=== PATIENT | male | born 1945 | race American Indian/Alaskan Native ===

== ENCOUNTER 2020-06-22 04:16 | Observation (INO) | payer MEDICARE, OTHER ==
[2020-06-22] MEDS ORDERED: ALBUTEROL 2.5 MG/3 ML NEBU IH ONE (05:06)
[2020-06-22] MEDS ORDERED: IPRATROPIUM 0.02% NEBU 2.5 ML IH ONE (05:06)
[2020-06-22 05:49] LABS: Basophils # (Auto) 0.1 K/mm3 (0.0-0.1); Basophils % (Auto) 0.6 % (0.0-1.8); Eosinophils # (Auto) 0.1 K/mm3 (0.0-0.4); Eosinophils % (Auto) 0.6 % (0.0-4.3); Hematocrit 37.3 % (35.5-45.6); Hemoglobin 12.3 gm/dl (11.8-15.2); Lymphocytes # (Auto) 0.9 K/mm3 (1.2-5.4); Lymphocytes % (Auto) 8.8 % (13.4-35.0); Mean Corpuscular HGB Conc 33 % (32-34); Mean Corpuscular Volume 90 fl (84-94); Monocytes # (Auto) 0.5 K/mm3 (0.0-0.8); Monocytes % (Auto) 5.4 % (0.0-7.3); Platelet Count 106 K/mm3 (140-440); Red Blood Count 4.15 M/mm3 (3.65-5.03); Red Cell Distribution Width 15.8 % (13.2-15.2)
[2020-06-22 05:58] LABS: INR 1.24 (0.87-1.13)
--- NOTE | 2020-06-22 06:02 | XRay Report ---
CHEST 1 VIEW INDICATION / CLINICAL INFORMATION: Shortness of breath. COMPARISON: None available. FINDINGS: SUPPORT DEVICES: None. HEART / MEDIASTINUM: No significant abnormality. LUNGS / PLEURA: No significant pulmonary or pleural abnormality. No pneumothorax. ADDITIONAL FINDINGS: No significant additional findings. IMPRESSION: 1. No acute findings. Signer Name: Robyn Oseguera MD Signed: 06/22/2020 5:58 AM Workstation Name: [id number]
--- NOTE | 2020-06-22 06:02 | Emergency Department Report ---
ED General Adult HPI - General Chief complaint: Dyspnea/Respdistress Stated complaint: GIO Time Seen by Provider: 06/22/20 05:53 Source: patient Mode of arrival: Ambulatory Limitations: No Limitations - History of Present Illness Initial comments: The patient presents to the emergency department the chief complaint of shortness of breath that became worse over the last 2 days. Patient denies a history of congestive heart failure or COPD. Patient denies having a fever but does endorse having a cough in the last couple of days. Patient states that he has an appointment for heart valve replacement on Monday with Dr. Tiago Ramos. Patient denies any chest pain, he art palpitations, headache, abdominal pain. -: Sudden Severity scale (0 -10): 0 Consistency: constant Improves with: none Worsens with: none Associated Symptoms: denies other symptoms Treatments Prior to Arrival: none - Related Data Allergies Allergy/AdvReac Type Severity Reaction Status Date / Time No Known Allergies Allergy Unverified 06/22/20 04:33 ED Review of Systems ROS: Stated complaint: GIO Other details as noted in HPI Comment: All other systems reviewed and negative Constitutional: denies: chills, fever Eyes: denies: eye pain, eye discharge, vision change ENT: denies: ear pain, throat pain Respiratory: shortness of breath, SOB with exertion. denies: cough, wheezing Cardiovascular: denies: chest pain, palpitations Endocrine: no symptoms reported Gastrointestinal: denies: abdominal pain, nausea, diarrhea Genitourinary: denies: urgency, dysuria Musculoskeletal: denies: back pain, joint swelling, arthralgia Skin: denies: rash, lesions Neurological: denies: headache, weakness, paresthesias Psychiatric: denies: anxiety, depression Hematological/Lymphatic: denies: easy bleeding, easy bruising ED Past Medical Hx - Past Medical History Previous Medical History?: Yes Hx Hypertension: Yes Hx Diabetes: Yes Hx Renal Disease: ("kidney problems"; denies dialysis) - Social History Smoking Status: Never Smoker Substance Use Type: None ED Physical Exam - General Limitations: No Limitations General appearance: alert, in no apparent distress, other (Dyspneic with speech) - Head Head exam: Present: atraumatic, normocephalic - Eye Eye exam: Present: normal appearance, PERRL - ENT ENT exam: Present: mucous membranes moist - Neck Neck exam: Present: normal inspection - Respiratory Respiratory exam: Present: rales. Absent: respiratory distress - Cardiovascular Cardiovascular Exam: Present: regular rate, normal rhythm, systolic murmur. Absent: diastolic murmur, rubs, gallop - GI/Abdominal GI/Abdominal exam: Present: soft, normal bowel sounds. Absent: distended, tenderness - Rectal Rectal exam: Present: deferred - Extremities Exam Extremities exam: Present: normal inspection - Back Exam Back exam: Present: normal inspection - Neurological Exam Neurological exam: Present: alert, oriented X3, CN II-XII intact. Absent: motor sensory deficit - Psychiatric Psychiatric exam: Present: normal affect, normal mood - Skin Skin exam: Present: warm, dry, intact, normal color. Absent: rash ED Course Vital Signs 06/22/20 06/22/20 06/22/20 04:18 04:30 04:45 Pulse Rate 82 Pulse Rate [ Bilateral Throughout] Respiratory 18 22 Rate Respiratory Rate [Bilateral Throughout] Blood Pressure O2 Sat by Pulse 97 95 98 Oximetry 06/22/20 06/22/20 06/22/20 04:46 05:00 05:19 Pulse Rate 84 81 Pulse Rate [ 85 Bilateral Throughout] Respiratory 19 24 Rate Respiratory 20 Rate [Bilateral Throughout] Blood Pressure 149/80 147/81 O2 Sat by Pulse 95 99 Oximetry 06/22/20 06/22/20 06/22/20 05:30 06:00 06:30 Pulse Rate 76 74 71 Pulse Rate [ Bilateral Throughout] Respiratory 17 20 24 Rate Respiratory Rate [Bilateral Throughout] Blood Pressure 150/77 153/73 149/72 O2 Sat by Pulse 96 94 96 Oximetry 06/22/20 06/22/20 07:00 07:30 Pulse Rate 68 68 Pulse Rate [ Bilateral Throughout] Respiratory 23 22 Rate Respiratory Rate [Bilateral Throughout] Blood Pressure 143/74 151/71 O2 Sat by Pulse 96 95 Oximetry ED Medical Decision Making - Lab Data Result diagrams: 06/22/20 05:12 06/22/20 05:12 Lab Results 06/22/20 06/22/20 06/22/20 Range/Units 05:12 05:12 05:12 WBC 9.8 (4.5-11.0) K/mm3 RBC 4.15 (3.65-5.03) M/mm3 Hgb 12.3 (11.8-15.2) gm/dl Hct 37.3 (35.5-45.6) % MCV 90 (84-94) fl MCH 30 (28-32) pg MCHC 33 (32-34) % RDW 15.8 H (13.2-15.2) % Plt Count 106 L (140-440) K/mm3 Lymph % (Auto) 8.8 L (13.4-35.0) % [place] % (Auto) 5.4 (0.0-7.3) % Eos % (Auto) 0.6 (0.0-4.3) % Baso % (Auto) 0.6 (0.0-1.8) % Lymph # (Auto) 0.9 L (1.2-5.4) K/mm3 [place] # (Auto) 0.5 (0.0-0.8) K/mm3 Eos # (Auto) 0.1 (0.0-0.4) K/mm3 Baso # (Auto) 0.1 (0.0-0.1) K/mm3 Seg Neutrophils % 84.6 H (40.0-70.0) % Seg Neutrophils # 8.3 H (1.8-7.7) K/mm3 PT 15.6 H (12.2-14.9) Sec. INR 1.24 H (0.87-1.13) Sodium (137-145) mmol/L Potassium (3.6-5.0) mmol/L Chloride (98-107) mmol/L Carbon Dioxide (22-30) mmol/L Anion Gap mmol/L BUN (9-20) mg/dL Creatinine (0.8-1.3) mg/dL Estimated GFR ml/min BUN/Creatinine Ratio % Glucose (75-100) mg/dL Calcium (8.4-10.2) mg/dL Total Bilirubin (0.1-1.2) mg/dL AST (5-40) units/L ALT (7-56) units/L Alkaline Phosphatase (35-129) units/L NT-Pro-B Natriuret Pep 6357 H (0-900) pg/mL Total Protein (6.3-8.2) g/dL Albumin (3.9-5) g/dL Albumin/Globulin Ratio % 05// Range/Units 05:12 WBC (4.5-11.0) K/mm3 RBC (3.65-5.03) M/mm3 Hgb (11.8-15.2) gm/dl Hct (35.5-45.6) % MCV (84-94) fl MCH (28-32) pg MCHC (32-34) % RDW (13.2-15.2) % Plt Count (140-440) K/mm3 Lymph % (Auto) (13.4-35.0) % [place] % (Auto) (0.0-7.3) % Eos % (Auto) (0.0-4.3) % Baso % (Auto) (0.0-1.8) % Lymph # (Auto) (1.2-5.4) K/mm3 [place] # (Auto) (0.0-0.8) K/mm3 Eos # (Auto) (0.0-0.4) K/mm3 Baso # (Auto) (0.0-0.1) K/mm3 Seg Neutrophils % (40.0-70.0) % Seg Neutrophils # (1.8-7.7) K/mm3 PT (12.2-14.9) Sec. INR (0.87-1.13) Sodium 142 (137-145) mmol/L Potassium 3.8 (3.6-5.0) mmol/L Chloride 107.9 H (98-107) mmol/L Carbon Dioxide 24 (22-30) mmol/L Anion Gap 14 mmol/L BUN 17 (9-20) mg/dL Creatinine 1.3 (0.8-1.3) mg/dL Estimated GFR 54 ml/min BUN/Creatinine Ratio 13 % Glucose 202 H (75-100) mg/dL Calcium 8.7 (8.4-10.2) mg/dL Total Bilirubin 0.70 (0.1-1.2) mg/dL AST 15 (5-40) units/L ALT 10 (7-56) units/L Alkaline Phosphatase 69 (35-129) units/L NT-Pro-B Natriuret Pep (0-900) pg/mL Total Protein 6.2 L (6.3-8.2) g/dL Albumin 3.6 L (3.9-5) g/dL Albumin/Globulin Ratio 1.4 % - EKG Data -: EKG Interpreted by Hi EKG shows normal: sinus rhythm Rate: normal - EKG Data Interpretation: other (Inverted T waves in V5 and V6) - Radiology Data Radiology results: report reviewed - Medical Decision Making Patient was given IV Lasix with some relief of symptoms Discussed results and plan of care with patient Critical Care Time: Yes Critical care time in (mins) excluding proc time.: 35 Critical care attestation.: If time is entered above; I have spent that time in minutes in the direct care of this critically ill patient, excluding procedure time. ED Disposition Clinical Impression: Dyspnea, Pulmonary edema Disposition: DC-09 OP ADMIT IP TO THIS HOSP Is pt being admited?: Yes Does the pt Need Aspirin: No Condition: Fair Instructions: Pulmonary Edema (ED) Referrals: ELMER VELA MD [Primary Care Provider] - 3-5 Days
[2020-06-22 06:18] LABS: Albumin 3.6 g/dL (3.9-5); Calcium 8.7 mg/dL (8.4-10.2)
[2020-06-22] MEDS ORDERED: FUROSEMIDE 20 MG/2 ML INJ IV ONE (08:27)
--- NOTE | 2020-06-22 08:32 | Cat Scan Report ---
CTA CHEST WITH IV CONTRAST INDICATION: Acute onset chest pain with dyspnea TECHNIQUE: Axial CT images were obtained through the chest after injection of 100 mL IV contrast. 3 plane MIP re constructions were produced. All CT scans at this location are performed using CT dose reduction for ALARA by means of automated exposure control. COMPARISON: None available. FINDINGS: PULMONARY ARTERIES: No pulmonary emboli. AORTA AND ARTERIES: Prominent coronary artery calcification. Prominent atherosclerotic calcification of the descending thoracic aorta.. MEDIASTINUM: No mass, lymphadenopathy or other significant abnormality. The heart is normal in size w ithout a pericardial effusion. The trachea and main bronchi are patent and normal in caliber. LUNGS: Scattered increased groundglass/interstitial opacity present within both lungs specifically wi thin both upper lobes, right greater than left. There is some ill-defined groundglass density within both lower lobes. Small right pleural effusion and tiny left pleural effusion. ADDITIONAL FINDINGS: None. UPPER ABDOMEN: No acute findings. BONES: No significant osseous abnormality. IMPRESSION: 1. No CT evidence for pulmonary embolism. 2. Small bilateral pleural effusions with bilateral increased groundglass densities in a relative per ihilar distribution suspicious for interstitial edema. Signer Name: Keith Oliva MD Signed: 06/22/2020 8:28 AM Workstation Name: [id number]
[2020-06-22] MEDS ORDERED: CEFEPIME/NS 2 GM/100 ML 2 GM/100 ML BAG IV ONE (09:04)
[2020-06-22] MEDS ORDERED: ONDANSETRON 4 MG/2 ML INJ IV PRN (10:21)
[2020-06-22] MEDS ORDERED: DEXTROSE 50% IN WATER (25GM) 50 ML SYRINGE IV PRN (10:21)
[2020-06-22] MEDS ORDERED: ACETAMINOPHEN 325 MG TAB PO PRN (10:21)
--- NOTE | 2020-06-22 10:21 | History and Physical Report ---
History of Present Illness Date of examination: 06/22/20 Date of admission: 06/22/20 09:18 Chief complaint: SOB History of present illness: 75-year-old male with past medical history of hyperlipidemia, BPH, diabetes mellitus type 2, hypertension and chronic kidney disease who presents to the emergency department with complaints of dyspnea that began yesterday evening. Patient stated that his symptoms persisted until arrival to the emergency room. Patient denies any history of COPD or heart failure but reports a "bad heart valve". Patient reports that he is scheduled for heart valve replacement on Monday with Dr. Tiago Ramos. Patient denies any chest pain, heart palpitations, abdominal pain, headache or visual disturbances. No cough or cold-like symptoms. No fever chills. Patient reports lower extremity swelling over the course of the past year but none recently. Patient denies PND or orthopnea. Past History Past Medical History: diabetes, hypertension, hyperlipidemia, other (CKD, BPH) Past Surgical History: No surgical history Social history: no significant social history Family history: no significant family history Medications and Allergies Allergies Allergy/AdvReac Type Severity Reaction Status Date / Time No Known Allergies Allergy Unverified 06/22/20 04:33 Review of Systems All systems: negative Exam - Constitutional Vitals: Temp Pulse Resp BP Pulse Ox 68 22 151/71 95 06/22/20 07:30 06/22/20 07:30 06/22/20 07:30 06/22/20 07:30 General appearance: Present: no acute distress, well-nourished - EENT Eyes: Present: PERRL ENT: hearing intact, clear oral mucosa - Neck Neck: Present: supple, normal ROM - Respiratory Respiratory effort: normal Respiratory: bilateral: CTA - Cardiovascular Heart Sounds: Present: S1 & S2. Absent: rub, click - Extremities Extremities: pulses symmetrical, No edema Peripheral Pulses: within normal limits - Abdominal General gastrointestinal: Present: soft, non-tender, non-distended, normal bowel sounds Male genitourinary: Present: normal - Integumentary Integumentary: Present: clear, warm, dry - Musculoskeletal Musculoskeletal: gait normal, strength equal bilaterally - Psychiatric Psychiatric: appropriate mood/affect, intact judgment & insight - Neurologic Neurologic: CNII-XII intact, moves all extremities Results - Labs CBC & Chem 7: 06/22/20 05:12 06/22/20 05:12 Labs: Laboratory Last Values WBC 9.8 K/mm3 (4.5-11.0) 06/22/20 05:12 RBC 4.15 M/mm3 (3.65-5.03) 06/22/20 05:12 Hgb 12.3 gm/dl (11.8-15.2) 06/22/20 05:12 Hct 37.3 % (35.5-45.6) 06/22/20 05:12 MCV 90 fl (84-94) 06/22/20 05:12 MCH 30 pg (28-32) 06/22/20 05:12 MCHC 33 % (32-34) 06/22/20 05:12 RDW 15.8 % (13.2-15.2) H 06/22/20 05:12 Plt Count 106 K/mm3 (140-440) L 06/22/20 05:12 Lymph % (Auto) 8.8 % (13.4-35.0) L 06/22/20 05:12 [place] % (Auto) 5.4 % (0.0-7.3) 06/22/20 05:12 Eos % (Auto) 0.6 % (0.0-4.3) 06/22/20 05:12 Baso % (Auto) 0.6 % (0.0-1.8) 06/22/20 05:12 Lymph # (Auto) 0.9 K/mm3 (1.2-5.4) L 06/22/20 05:12 [place] # (Auto) 0.5 K/mm3 (0.0-0.8) 06/22/20 05:12 Eos # (Auto) 0.1 K/mm3 (0.0-0.4) 06/22/20 05:12 Baso # (Auto) 0.1 K/mm3 (0.0-0.1) 06/22/20 05:12 Seg Neutrophils % 84.6 % (40.0-70.0) H 06/22/20 05:12 Seg Neutrophils # 8.3 K/mm3 (1.8-7.7) H 06/22/20 05:12 PT 15.6 Sec. (12.2-14.9) H 06/22/20 05:12 INR 1.24 (0.87-1.13) H 06/22/20 05:12 Sodium 142 mmol/L (137-145) 06/22/20 05:12 Potassium 3.8 mmol/L (3.6-5.0) 06/22/20 05:12 Chloride 107.9 mmol/L (98-107) H 06/22/20 05:12 Carbon Dioxide 24 mmol/L (22-30) 06/22/20 05:12 Anion Gap 14 mmol/L 06/22/20 05:12 BUN 17 mg/dL (9-20) 06/22/20 05:12 Creatinine 1.3 mg/dL (0.8-1.3) 06/22/20 05:12 Estimated GFR 54 ml/min 06/22/20 05:12 BUN/Creatinine Ratio 13 % 06/22/20 05:12 Glucose 202 mg/dL (75-100) H 06/22/20 05:12 Calcium 8.7 mg/dL (8.4-10.2) 06/22/20 05:12 Total Bilirubin 0.70 mg/dL (0.1-1.2) 06/22/20 05:12 AST 15 units/L (5-40) 06/22/20 05:12 ALT 10 units/L (7-56) 06/22/20 05:12 Alkaline Phosphatase 69 units/L (35-129) 06/22/20 05:12 NT-Pro-B Natriuret Pep 6357 pg/mL (0-900) H 06/22/20 05:12 Total Protein 6.2 g/dL (6.3-8.2) L 06/22/20 05:12 Albumin 3.6 g/dL (3.9-5) L 06/22/20 05:12 Albumin/Globulin Ratio 1.4 % 06/22/20 05:12 Microbiology: Microbiology 06/22/20 05:54 Peripheral/Venous Blood Culture - Preliminary Culture in Progress 06/22/20 05:12 Peripheral/Venous Blood Culture - Preliminary Culture in Progress Assessment and Plan Assessment and plan: Acute hypoxic respiratory failure. CTA of the chest revealed small bilateral pleural effusions with bilateral increased groundglass densities in a relative perihilar distribution suspicious for interstitial edema. Check COVID-19 PCR. Acute heart failure. Patient has a CTA that is suggestive of interstitial edema/pulmonary edema/CHF. BNP is also elevated at 6357. Check echocardiogram. Consult cardiology. Patient will be placed on heart failure pathway. Diabetes mellitus type 2. Accu-Cheks and sliding scale insulin. Resume Metformin. BPH. Resume medications. Hyperlipidemia. Resume antilipids. CKD. Creatinine appears to be stable at 1.3
[2020-06-22] MEDS: INSULIN REGULAR, HUMAN 100 UNITS/1 ML SUB-Q SCH ×3 (13:33→22:46)
[2020-06-23] MEDS ORDERED: guaiFENesin 100 MG/5 ML ORAL LIQD PO PRN (00:29)
[2020-06-23] MEDS: INSULIN REGULAR, HUMAN 100 UNITS/1 ML SUB-Q SCH ×4 (07:30→21:53)
[2020-06-23 07:42] LABS: Basophils % (Auto) 0.5 % (0.0-1.8); Eosinophils # (Auto) 0.1 K/mm3 (0.0-0.4); Eosinophils % (Auto) 1.2 % (0.0-4.3); Hematocrit 37.2 % (35.5-45.6); Hemoglobin 11.9 gm/dl (11.8-15.2); Lymphocytes % (Auto) 13.9 % (13.4-35.0); Mean Corpuscular HGB Conc 32 % (32-34); Mean Corpuscular Volume 89 fl (84-94); Monocytes # (Auto) 0.5 K/mm3 (0.0-0.8); Monocytes % (Auto) 7.4 % (0.0-7.3); Platelet Count 112 K/mm3 (140-440); Red Blood Count 4.18 M/mm3 (3.65-5.03); Red Cell Distribution Width 15.6 % (13.2-15.2)
--- NOTE | 2020-06-23 07:53 | Progress Note ---
Assessment and Plan Assessment and plan: Acute hypoxic respiratory failure. CTA of the chest revealed small bilateral pleural effusions with bilateral increased groundglass densities in a relative perihilar distribution suspicious for interstitial edema. Check COVID-19 PCR. Acute heart failure. Patient has a CTA that is suggestive of interstitial edema/pulmonary edema/CHF. BNP is also elevated at 6357. Check echocardiogram. Consult cardiology. Patient will be placed on heart failure pathway. Diabetes mellitus type 2. Accu-Cheks and sliding scale insulin. Resume Metformin. BPH. Resume medications. Hyperlipidemia. Resume antilipids. CKD. 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 -Patient can be discharged once we have his Covid test result History Interval history: Patient was seen and evaluated this morning Patient shortness of breath is getting better. Patient was off oxygen, no shortness of breath or chest pain Hospitalist Physical - Physical exam Narrative exam: Not in cardiopulmonary distress. The patient appeared well nourished and normally developed. Vital signs as documented. Head exam is unremarkable. No scleral icterus . Neck is without jugular venous distension, thyromegaly, or carotid bruits. Lungs are clear to auscultation. Cardiac exam reveals regular rate and Rhythm. Abdominal exam reveals normal bowel sounds, nontender, no organomegaly. Extremities are nonedematous and both femoral and pedal pulses are normal. HEALTH AND FITNESS PROFESSOR: Alert and oriented 3. No focal weakness. - Constitutional Vitals: Temp Pulse Resp BP Pulse Ox 99.2 F 79 20 166/75 100 06/23/20 04:27 06/23/20 04:27 06/23/20 04:27 06/23/20 04:27 06/23/20 04:27 General appearance: Present: no acute distress, well-nourished Results - Labs CBC & Chem 7: 06/23/20 06:34 06/23/20 06:34 Labs: Laboratory Last Values WBC 7.3 K/mm3 (4.5-11.0) 06/23/20 06:34 RBC 4.18 M/mm3 (3.65-5.03) 06/23/20 06:34 Hgb 11.9 gm/dl (11.8-15.2) 06/23/20 06:34 Hct 37.2 % (35.5-45.6) 06/23/20 06:34 MCV 89 fl (84-94) 06/23/20 06:34 MCH 29 pg (28-32) 06/23/20 06:34 MCHC 32 % (32-34) 06/23/20 06:34 RDW 15.6 % (13.2-15.2) H 06/23/20 06:34 Plt Count 112 K/mm3 (140-440) L 06/23/20 06:34 Lymph % (Auto) 13.9 % (13.4-35.0) 06/23/20 06:34 [place] % (Auto) 7.4 % (0.0-7.3) H 06/23/20 06:34 Eos % (Auto) 1.2 % (0.0-4.3) 06/23/20 06:34 Baso % (Auto) 0.5 % (0.0-1.8) 06/23/20 06:34 Lymph # (Auto) 1.0 K/mm3 (1.2-5.4) L 06/23/20 06:34 [place] # (Auto) 0.5 K/mm3 (0.0-0.8) 06/23/20 06:34 Eos # (Auto) 0.1 K/mm3 (0.0-0.4) 06/23/20 06:34 Baso # (Auto) 0.0 K/mm3 (0.0-0.1) 06/23/20 06:34 Seg Neutrophils % 77.0 % (40.0-70.0) H 06/23/20 06:34 Seg Neutrophils # 5.7 K/mm3 (1.8-7.7) 06/23/20 06:34 PT 15.6 Sec. (12.2-14.9) H 06/22/20 05:12 INR 1.24 (0.87-1.13) H 06/22/20 05:12 Sodium 142 mmol/L (137-145) 06/22/20 05:12 Potassium 3.8 mmol/L (3.6-5.0) 06/22/20 05:12 Chloride 107.9 mmol/L (98-107) H 06/22/20 05:12 Carbon Dioxide 24 mmol/L (22-30) 06/22/20 05:12 Anion Gap 14 mmol/L 06/22/20 05:12 BUN 17 mg/dL (9-20) 06/22/20 05:12 Creatinine 1.3 mg/dL (0.8-1.3) 06/22/20 05:12 Estimated GFR 54 ml/min 06/22/20 05:12 BUN/Creatinine Ratio 13 % 06/22/20 05:12 Glucose 202 mg/dL (75-100) H 06/22/20 05:12 POC Glucose 156 mg/dL (70-105) H 06/22/20 21:26 Lactic Acid 1.30 mmol/L (0.7-2.0) 06/22/20 09:19 Calcium 8.7 mg/dL (8.4-10.2) 06/22/20 05:12 Total Bilirubin 0.70 mg/dL (0.1-1.2) 06/22/20 05:12 AST 15 units/L (5-40) 06/22/20 05:12 ALT 10 units/L (7-56) 06/22/20 05:12 Alkaline Phosphatase 69 units/L (35-129) 06/22/20 05:12 NT-Pro-B Natriuret Pep 6357 pg/mL (0-900) H 06/22/20 05:12 Total Protein 6.2 g/dL (6.3-8.2) L 06/22/20 05:12 Albumin 3.6 g/dL (3.9-5) L 06/22/20 05:12 Albumin/Globulin Ratio 1.4 % 06/22/20 05:12 Microbiology: Microbiology 06/22/20 05:54 Peripheral/Venous Blood Culture - Preliminary Culture in Progress 06/22/20 05:12 Peripheral/Venous Blood Culture - Preliminary Culture in Progress Staples/IV: Voiding Method Toilet Active Medications - Current Medications Current Medications: Generic Name Dose Route Start Last Admin Trade Name Freq PRN Reason Stop Dose Admin Acetaminophen 650 mg 06/22/20 10:21 Acetaminophen 325 Mg Tab PO Q4H PRN Pain MILD(1-3)/Fever >100.5/SHAFER Dextrose 50 ml 06/22/20 10:21 Dextrose 50% In Water (25gm) 50 Ml Syringe IV Q30MIN PRN Hypoglycemia Protocol Furosemide 40 mg 06/23/20 10:00 Furosemide 40 Mg/4 Ml Inj IV QDAY [facility] Guaifenesin 200 mg 06/23/20 00:29 06/23/20 06:17 Guaifenesin 100 Mg/5 Ml Oral Liqd PO 200 mg Q6H PRN Administration Cough Insulin Human Regular 0 units 06/22/20 11:30 06/22/20 22:46 Insulin Regular, Human 100 Units/1 Ml SUB-Q Not Given ACHS [facility] Protocol Ondansetron HCl 4 mg 06/22/20 10:21 Ondansetron 4 Mg/2 Ml Inj IV Q8H PRN Nausea And Vomiting Potassium Chloride 10 meq 06/23/20 10:00 Potassium Chloride Er 10 Meq Tab PO QDAY PABLO Sodium Chloride 10 ml 06/22/20 22:00 06/22/20 22:46 Sodium Chloride 0.9% 10 Ml Flush Syringe IV 10 ml BID PABLO Administration Sodium Chloride 10 ml 06/22/20 10:21 Sodium Chloride 0.9% 10 Ml Flush Syringe IV PRN PRN LINE FLUSH
[2020-06-23 08:14] LABS: BUN/Creatinine Ratio 18; Blood Urea Nitrogen 21 mg/dL (9-20); Calcium 8.7 mg/dL (8.4-10.2); Hemolysis Index 1
[2020-06-23] MEDS: FUROSEMIDE 40 MG/4 ML INJ IV SCH (09:27)
[2020-06-23] MEDS: POTASSIUM CHLORIDE ER 10 MEQ TAB PO SCH (09:27)
[2020-06-23] MEDS: hydroCHLOROthiazide 12.5 MG CAP PO SCH (10:00)
[2020-06-23] MEDS: carvediloL 12.5 MG TAB PO SCH ×2 (10:00→21:55)
[2020-06-23] MEDS: LOSARTAN 50 MG TAB PO SCH (10:00)
[2020-06-23] MEDS ORDERED: NON-FORMULARY EACH (Losartan [Cozaar] 100 MG Tablet) PO SCH (10:00)
[2020-06-23] MEDS ORDERED: DOXAZOSIN MESYLATE 8 MG PO SCH (10:00)
[2020-06-23] MEDS: NIFEdipine XL 90 MG TAB PO SCH (10:00)
[2020-06-23] MEDS: TAMSULOSIN 0.4 MG CAP PO SCH (11:30)
[2020-06-23] MEDS: glipiZIDE 5 MG TAB PO SCH (11:34)
[2020-06-23] MEDS: metFORMIN 500 MG TAB PO SCH ×2 (11:52→16:35)
--- NOTE | 2020-06-23 11:57 | Consultation ---
History of Present Illness Consult date: 06/23/20 Consult reason: congestive heart failure History of present illness: Patient is a 75-year old male with valvular heart disease. Recent echocardiogram reports severe aortic stenosis, mean gradient is 52 mmHg. Ejection fraction 65%. 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 There is no history of coronary artery disease. A cardiac cath in 2006 showed no significant coronary artery disease. In 2018, he had a normal perfusion myocardial scan. He presents to this hospital with shortness of breath, and wheezing that woke him from sleep. There were no report of palpations. He has no lower extremity edema. Currently, he is undergoing workup for suspected COVID 19. Chest x-ray showed no acute process. CTA chest showed low probability for PE. An ECG is sinus rhythm with repolarization abnormality. A cardiology consultation has been requested for CHF evaluation. Past History Past Medical History: diabetes, hypertension, hyperlipidemia, other (CKD, BPH) Past Surgical History: No surgical history Social history: no significant social history Family history: no significant family history Medications and Allergies Allergies Allergy/AdvReac Type Severity Reaction Status Date / Time No Known Allergies Allergy Unverified 06/22/20 04:33 Home Medications Medication Instructions Recorded Confirmed Last Taken Type Acetaminophen [Tylenol] 500 mg PO PRN 06/22/20 06/22/20 Unknown History Ammonium Lactate [Lac-Hydrin 1 applicatio TP BID 06/22/20 06/22/20 Unknown History Lotion] Ascorbic Acid [Vitamin C] 1,000 mg PO DAILY 06/22/20 06/22/20 06/21/20 History AtorvaSTATin [Lipitor] 20 mg PO DAILY 06/22/20 06/22/20 06/21/20 History Cholecalciferol (Vitamin D3) 50 mcg PO DAILY 06/22/20 06/22/20 06/21/20 History [Vitamin D3] Clopidogrel [Plavix] 75 mg PO QDAY 06/22/20 06/22/20 06/21/20 History Docusate Sodium [Colace] 100 mg PO BID PRN 06/22/20 06/22/20 Unknown History Doxazosin Mesylate [Cardura] 8 mg PO DAILY 06/22/20 06/22/20 06/21/20 History Ferrous Sulfate [Ferrous Sulfate 324 mg PO DAILY 06/22/20 06/22/20 06/21/20 History 324 MG] Garlic 1,000 mg PO DAILY 06/22/20 06/22/20 Unknown History Losartan [Cozaar] 100 tab PO DAILY 06/22/20 06/22/20 06/21/20 History NIFEdipine XL [Procardia Xl] 90 mg PO QDAY 06/22/20 06/22/20 06/21/20 History Potassium 99 mg PO DAILY 06/22/20 06/22/20 Unknown History Sildenafil Citrate [Viagra] 100 mg PO PRN 06/22/20 06/22/20 Unknown History Tamsulosin [Flomax] 0.4 mg PO QDAY 06/22/20 06/22/20 06/21/20 History carvediloL [Coreg] 12.5 tab PO BID 06/22/20 06/22/20 06/21/20 History diphenhydrAMINE HCL [Sleep Time] 50 tab PO PRN 06/22/20 06/22/20 Unknown History glipiZIDE [Glucotrol] 5 mg PO QDAY 06/22/20 06/22/20 06/21/20 History hydroCHLOROthiazide 25 mg PO DAILY 06/22/20 06/22/20 06/21/20 History [Hydrochlorothiazide] metFORMIN [Glucophage] 500 mg PO BID 06/22/20 06/22/20 06/21/20 History polyethylene glycoL 3350 [Miralax 8.5 gm PO PRN 06/22/20 06/22/20 Unknown Histo ry 3350] Active Meds: Active Medications Acetaminophen (Acetaminophen 325 Mg Tab) 650 mg PO Q4H PRN PRN Reason: Pain MILD(1-3)/Fever >100.5/SHAFER Atorvastatin Calcium (Atorvastatin 20 Mg Tab) 20 mg PO DAILY [facility] Last Admin: 06/23/20 10:00 Dose: 20 mg Documented by: Carvedilol (Carvedilol 12.5 Mg Tab) 12.5 mg PO BID [facility] Last Admin: 06/23/20 10:00 Dose: 12.5 mg Documented by: Dextrose (Dextrose 50% In Water (25gm) 50 Ml Syringe) 50 ml IV Q30MIN PRN; Pro tocol PRN Reason: Hypoglycemia Doxazosin Mesylate (Doxazosin 4 Mg Tab) 4 mg PO QDAY@2200 [facility] Furosemide (Furosemide 40 Mg/4 Ml Inj) 40 mg IV QDAY [facility] Last Admin: 06/23/20 09:27 Dose: 40 mg Documented by: Glipizide (Glipizide 5 Mg Tab) 5 mg PO QDDIAB [facility] Last Admin: 06/23/20 11:34 Dose: 5 mg Documented by: Guaifenesin (Guaifenesin 100 Mg/5 Ml Oral Liqd) 200 mg PO Q6H PRN PRN Reason: Cough Last Admin: 06/23/20 06:17 Dose: 200 mg Documented by: Hydrochlorothiazide (Hydrochlorothiazide 12.5 Mg Cap) 25 mg PO DAILY [facility] Last Admin: 06/23/20 10:00 Dose: 25 mg Documented by: Insulin Human Regular (Insulin Regular, Human 100 Units/1 Ml) 0 units SUB-Q ACHS [facility]; Protocol Last Admin: 06/23/20 07:30 Dose: 2 units Documented by: Losartan Potassium (Losartan 50 Mg Tab) 100 mg PO QDAY [facility] Last Admin: 06/23/20 10:00 Dose: 100 mg Documented by: Metformin HCl (Metformin 500 Mg Tab) 500 mg PO BIDDIAB [facility] Nifedipine (Nifedipine Xl 90 Mg Tab) 90 mg PO QDAY [facility] Last Admin: 06/23/20 10:00 Dose: 90 mg Documented by: Ondansetron HCl (Ondansetron 4 Mg/2 Ml Inj) 4 mg IV Q8H PRN PRN Reason: Nausea And Vomiting Potassium Chloride (Potassium Chloride Er 10 Meq Tab) 10 meq PO QDAY [facility] Last Admin: 06/23/20 09:27 Dose: 10 meq Documented by: Sodium Chloride (Sodium Chloride 0.9% 10 Ml Flush Syringe) 10 ml IV BID [facility] Last Admin: 06/23/20 09:28 Dose: 10 ml Documented by: Sodium Chloride (Sodium Chloride 0.9% 10 Ml Flush Syringe) 10 ml IV PRN PRN PRN Reason: LINE FLUSH Tamsulosin HCl (Tamsulosin 0.4 Mg Cap) 0.4 mg PO QDAY [facility] Last Admin: 06/23/20 11:30 Dose: 0.4 mg Documented by: Review of Systems Cardiovascular: shortness of breath, no chest pain, no palpitations, no rapid/irregular heart beat, no edema, no syncope Physical Examination Vital Signs Pulse Ox 97 06/22/20 04:18 Narrative exam: Deferred due to isolation protocol. General appearance: no acute distress Cardiac: Positive: Reg Rate and Rhythm Neuro: Positive: Grossly Intact Extremities: Absent: edema Results 06/23/20 06:34 06/23/20 06:34 CBC 06/23/20 Range/Units 06:34 WBC 7.3 (4.5-11.0) K/mm3 RBC 4.18 (3.65-5.03) M/mm3 Hgb 11.9 (11.8-15.2) gm/dl Hct 37.2 (35.5-45.6) % Plt Count 112 L (140-440) K/mm3 Lymph # (Auto) 1.0 L (1.2-5.4) K/mm3 [place] # (Auto) 0.5 (0.0-0.8) K/mm3 Eos # (Auto) 0.1 (0.0-0.4) K/mm3 Baso # (Auto) 0.0 (0.0-0.1) K/mm3 Comprehensive Metabolic Panel 06/23/20 Range/Units 06:34 Sodium 144 (137-145) mmol/L Potassium 3.7 (3.6-5.0) mmol/L Chloride 108.4 H (98-107) mmol/L Carbon Dioxide 23 (22-30) mmol/L BUN 21 H (9-20) mg/dL Creatinine 1.2 (0.8-1.3) mg/dL Glucose 184 H (75-100) mg/dL Calcium 8.7 (8.4-10.2) mg/dL Assessment and Plan - Patient Problems (1) Dyspnea Current Visit: Yes Status: Acute
[2020-06-23] MEDS ORDERED: metFORMIN 500 MG TAB PO SCH (17:00)
[2020-06-23] MEDS: DOXAZOSIN 4 MG TAB PO SCH (21:56)
--- NOTE | 2020-06-24 08:39 | Progress Note ---
Assessment and Plan Assessment and plan: Acute hypoxic respiratory failure. CTA of the chest revealed small bilateral pleural effusions with bilateral increased groundglass densities in a relative perihilar distribution suspicious for interstitial edema. Check COVID-19 PCR. Acute heart failure. Patient has a CTA that is suggestive of interstitial edema/pulmonary edema/CHF. BNP is also elevated at 6357. Check echocardiogram. Consult cardiology. Patient will be placed on heart failure pathway. Diabetes mellitus type 2. Accu-Cheks and sliding scale insulin. Resume Metformin. BPH. Resume medications. Hyperlipidemia. Resume antilipids. CKD. Creatinine appears to be stable at 1.3 06/23/2020 -Patient was off oxygen n -COVID-19 test -BMP from this morning is pending -Was evaluated by cardiology and had a recent echo which showed ejection fraction of 64% -Patient will have work-up with his features reporter on Monday. -Patient can be discharged once we have his Covid test result 06/24/2020 -Covid test is still pending for the last 2 days -Patient was seen by cardiology and cardiology said we will transfer patient to [facility] to his features reporter if Covid test is negative. Patient is not sure if he wants to be transferred or discharged home and go by himself. -Patient declined to take insulin, resumed his Glucophage and glipizide -His blood pressure medications -Held Plavix for scheduled procedure History Interval history: Patient was seen and evaluated this morning Patient shortness of breath is getting better. Patient was off oxygen, no shortness of breath or chest pain Hospitalist Physical - Physical exam Narrative exam: Not in cardiopulmonary distress. The patient appeared well nourished and normally developed. Vital signs as documented. Head exam is unremarkable. No scleral icterus . Neck is without jugular venous distension, thyromegaly, or carotid bruits. Lungs are clear to auscultation. Cardiac exam reveals regular rate and Rhythm. Abdominal exam reveals normal bowel sounds, nontender, no organomegaly. Extremities are nonedematous and both femoral and pedal pulses are normal. 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 No focal weakness. - Constitutional Vitals: Temp Pulse Resp BP Pulse Ox 99.2 F 65 20 142/69 96 06/24/20 04:24 06/24/20 04:24 06/24/20 04:24 06/24/20 04:24 06/24/20 04:24 General appearance: Present: no acute distress, well-nourished Results - Labs CBC & Chem 7: 06/23/20 06:34 06/24/20 11:04 Labs: Laboratory Last Values WBC 7.3 K/mm3 (4.5-11.0) 06/23/20 06:34 RBC 4.18 M/mm3 (3.65-5.03) 06/23/20 06:34 Hgb 11.9 gm/dl (11.8-15.2) 06/23/20 06:34 Hct 37.2 % (35.5-45.6) 06/23/20 06:34 MCV 89 fl (84-94) 06/23/20 06:34 MCH 29 pg (28-32) 06/23/20 06:34 MCHC 32 % (32-34) 06/23/20 06:34 RDW 15.6 % (13.2-15.2) H 06/23/20 06:34 Plt Count 112 K/mm3 (140-440) L 06/23/20 06:34 Lymph % (Auto) 13.9 % (13.4-35.0) 06/23/20 06:34 [place] % (Auto) 7.4 % (0.0-7.3) H 06/23/20 06:34 Eos % (Auto) 1.2 % (0.0-4.3) 06/23/20 06:34 Baso % (Auto) 0.5 % (0.0-1.8) 06/23/20 06:34 Lymph # (Auto) 1.0 K/mm3 (1.2-5.4) L 06/23/20 06:34 [place] # (Auto) 0.5 K/mm3 (0.0-0.8) 06/23/20 06:34 Eos # (Auto) 0.1 K/mm3 (0.0-0.4) 06/23/20 06:34 Baso # (Auto) 0.0 K/mm3 (0.0-0.1) 06/23/20 06:34 Seg Neutrophils % 77.0 % (40.0-70.0) H 06/23/20 06:34 Seg Neutrophils # 5.7 K/mm3 (1.8-7.7) 06/23/20 06:34 PT 15.6 Sec. (12.2-14.9) H 06/22/20 05:12 INR 1.24 (0.87-1.13) H 06/22/20 05:12 Sodium 144 mmol/L (137-145) 06/23/20 06:34 Potassium 3.7 mmol/L (3.6-5.0) 06/23/20 06:34 Chloride 108.4 mmol/L (98-107) H 06/23/20 06:34 Carbon Dioxide 23 mmol/L (22-30) 06/23/20 06:34 Anion Gap 16 mmol/L 06/23/20 06:34 BUN 21 mg/dL (9-20) H 06/23/20 06:34 Creatinine 1.2 mg/dL (0.8-1.3) 06/23/20 06:34 Estimated GFR > 60 ml/min 06/23/20 06:34 BUN/Creatinine Ratio 18 % 06/23/20 06:34 Glucose 184 mg/dL (75-100) H 06/23/20 06:34 POC Glucose 116 mg/dL (70-105) H 06/23/20 21:49 Lactic Acid 1.30 mmol/L (0.7-2.0) 06/22/20 09:19 Calcium 8.7 mg/dL (8.4-10.2) 06/23/20 06:34 Total Bilirubin 0.70 mg/dL (0.1-1.2) 06/22/20 05:12 AST 15 units/L (5-40) 06/22/20 05:12 ALT 10 units/L (7-56) 06/22/20 05:12 Alkaline Phosphatase 69 units/L (35-129) 06/22/20 05:12 NT-Pro-B Natriuret Pep 6357 pg/mL (0-900) H 06/22/20 05:12 Total Protein 6.2 g/dL (6.3-8.2) L 06/22/20 05:12 Albumin 3.6 g/dL (3.9-5) L 06/22/20 05:12 Albumin/Globulin Ratio 1.4 % 06/22/20 05:12 Microbiology: Microbiology 06/22/20 05:54 Peripheral/Venous Blood Culture - Preliminary NO GROWTH AFTER 48 HOURS 06/22/20 05:12 Peripheral/Venous Blood Culture - Preliminary NO GROWTH AFTER 48 HOURS Staples/IV: Voiding Method Toilet Active Medications - Current Medications Current Medications: Generic Name Dose Route Start Last Admin Trade Name Freq PRN Reason Stop Dose Admin Acetaminophen 650 mg 06/22/20 10:21 Acetaminophen 325 Mg Tab PO Q4H PRN Pain MILD(1-3)/Fever >100.5/SHAFER Atorvastatin Calcium 20 mg 06/23/20 10:00 06/23/20 10:00 Atorvastatin 20 Mg Tab PO 20 mg DAILY [facility] Administration Carvedilol 12.5 mg 06/23/20 10:00 06/23/20 21:55 Carvedilol 12.5 Mg Tab PO 12.5 mg BID [facility] Administration Dextrose 50 ml 06/22/20 10:21 Dextrose 50% In Water (25gm) 50 Ml Syringe IV Q30MIN PRN Hypoglycemia Protocol Doxazosin Mesylate 4 mg 06/23/20 22:00 06/23/20 21:56 Doxazosin 4 Mg Tab PO 4 mg QDAY@2200 [facility] Administration Furosemide 40 mg 06/23/20 10:00 06/23/20 09:27 Furosemide 40 Mg/4 Ml Inj IV 40 mg QDAY [facility] Administration Glipizide 5 mg 06/23/20 12:00 06/23/20 11:34 Glipizide 5 Mg Tab PO 5 mg QDDIAB [facility] Administration Guaifenesin 200 mg 06/23/20 00:29 06/23/20 06:17 Guaifenesin 100 Mg/5 Ml Oral Liqd PO 200 mg Q6H PRN Administration Cough Hydrochlorothiazide 25 mg 06/23/20 10:00 06/23/20 10:00 Hydrochlorothiazide 12.5 Mg Cap PO 25 mg DAILY [facility] Administration Insulin Human Regular 0 units 06/22/20 11:30 06/23/20 21:53 Insulin Regular, Human 100 Units/1 Ml SUB-Q Not Given ACHS [facility] Protocol Losartan Potassium 100 mg 06/23/20 10:00 06/23/20 10:00 Losartan 50 Mg Tab PO 100 mg QDAY [facility] Administration Metformin HCl 500 mg 06/23/20 12:00 06/23/20 16:35 Metformin 500 Mg Tab PO Not Given BIDDIAB [facility] Nifedipine 90 mg 06/23/20 10:00 06/23/20 10:00 Nifedipine Xl 90 Mg Tab PO 90 mg QDAY [facility] Administration Ondansetron HCl 4 mg 06/22/20 10:21 Ondansetron 4 Mg/2 Ml Inj IV Q8H PRN Nausea And Vomiting Potassium Chloride 10 meq 06/23/20 10:00 06/23/20 09:27 Potassium Chloride Er 10 Meq Tab PO 10 meq QDAY [facility] Administration Sodium Chloride 10 ml 06/22/20 22:00 06/23/20 21:56 Sodium Chloride 0.9% 10 Ml Flush Syringe IV 10 ml BID [facility] Administration Sodium Chloride 10 ml 06/22/20 10:21 Sodium Chloride 0.9% 10 Ml Flush Syringe IV PRN PRN LINE FLUSH Tamsulosin HCl 0.4 mg 06/23/20 10:00 06/23/20 11:30 Tamsulosin 0.4 Mg Cap PO 0.4 mg QDAY [facility] Administration
[2020-06-24] MEDS: metFORMIN 500 MG TAB PO SCH ×2 (08:59→17:44)
[2020-06-24] MEDS: INSULIN REGULAR, HUMAN 100 UNITS/1 ML SUB-Q SCH ×5 (08:59→22:47)
[2020-06-24] MEDS: NIFEdipine XL 90 MG TAB PO SCH (08:59)
[2020-06-24] MEDS: glipiZIDE 5 MG TAB PO SCH (08:59)
--- NOTE | 2020-06-24 09:00 | Progress Note ---
Assessment and Plan - Patient Problems (1) Dyspnea Current Visit: Yes Status: Acute Plan to address problem: COVID-19 serology test is pending. He has a history of progressive and now severe aortic stenosis 01/2020 echocardiogram done by his primary assessment clinician in [place] Dr. Ramos, reported critical aortic stenosis with a mean gradient of 54 and a valve area of 0.5. Left ventricular ejection fraction 60% The patient is currently scheduled for outpatient cardiac catheterization and possible transaortic valve replacement at [facility] later this week. We will await COVID-19 serology, if negative, will make arrangements for the patient to be transferred to his doctors at [facility] to undergo further management of his critical aortic stenosis. Subjective Date of service: 06/24/20 Interval history: Resting in bed and appears comfortable. Denies shortness of breath. Awaits COVID-19 test results. Objective Vital Signs Temp Pulse Pulse Resp BP Pulse Ox 06/24/20 08:51 94 06/24/20 04:24 99.2 F 65 20 142/69 96 06/23/20 22:00 69 20 96 06/23/20 21:55 144/66 06/23/20 21:51 98.9 F 69 20 144/76 96 06/23/20 21:05 98 06/23/20 16:27 98.0 F 70 18 151/79 96 06/23/20 11:26 98.0 F 75 18 163/82 100 - Physical Examination Narrative exam: Deferred due to isolation protocol. General: No Apparent Distress Cardiac: Positive: Reg Rate and Rhythm Neuro: Positive: Grossly Intact Extremities: Absent: edema
[2020-06-24] MEDS: FUROSEMIDE 40 MG/4 ML INJ IV SCH (10:15)
[2020-06-24] MEDS: hydroCHLOROthiazide 12.5 MG CAP PO SCH (10:15)
[2020-06-24] MEDS: TAMSULOSIN 0.4 MG CAP PO SCH (10:15)
[2020-06-24] MEDS: carvediloL 12.5 MG TAB PO SCH ×2 (10:16→22:47)
[2020-06-24] MEDS: LOSARTAN 50 MG TAB PO SCH (10:16)
[2020-06-24] MEDS: POTASSIUM CHLORIDE ER 10 MEQ TAB PO SCH (10:17)
[2020-06-24 11:53] LABS: BUN/Creatinine Ratio 18; Blood Urea Nitrogen 21 mg/dL (9-20); Calcium 9.5 mg/dL (8.4-10.2); Hemolysis Index 12
[2020-06-24] MEDS: DOXAZOSIN 4 MG TAB PO SCH (22:47)
--- NOTE | 2020-06-25 07:23 | Discharge Summary ---
Providers - Providers Date of Admission: 06/22/20 09:18 Date of discharge: 06/25/20 Attending physician: KENISHA RAY MD 06/22/20 10:21 Consult to Physician [CONS] Routine Comment: Consulting Provider: WILIAM HARRIS Physician Instructions: Reason For Exam: heart failure Primary care physician: ELMER VELA MD Hospitalization Condition: Fair Disposition: DC/[place]-70 ANOTHER TYPE HLTHCARE Final Discharge Diagnosis (Prints w/discharge instructions): Shortness of breath. Severe aortic stenosis Time spent for discharge: 25 minutes - Discharge Diagnoses (1) Severe aortic stenosis Status: Acute (2) Dyspnea Status: Acute Core Measure Documentation - Palliative Care Palliative Care/ Comfort Measures: Not Applicable - Core Measures Any of the following diagnoses?: none Exam - Physical Exam Narrative exam: Not in cardiopulmonary distress. The patient appeared well nourished and normally developed. Vital signs as documented. Head exam is unremarkable. No scleral icterus . Neck is without jugular venous distension, thyromegaly, or carotid bruits. Lungs are clear to auscultation. Cardiac exam reveals regular rate and Rhythm. Abdominal exam reveals normal bowel sounds, nontender, no organomegaly. Extremities are nonedematous and both femoral and pedal pulses are normal. 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 No focal weakness. - Constitutional Vitals: Temp Pulse Resp BP Pulse Ox 97.9 F 61 16 137/68 96 06/25/20 04:09 06/25/20 04:09 06/25/20 04:09 06/25/20 04:09 06/25/20 04:09 Plan Activity: no restrictions Weight Bearing Status: Full Weight Bearing Diet: low cholesterol, diabetic Follow up with: ELMER VELA MD [Primary Care Provider] - 3-5 Days
[2020-06-25] MEDS: metFORMIN 500 MG TAB PO SCH (08:17)
[2020-06-25] MEDS: glipiZIDE 5 MG TAB PO SCH (08:17)
[2020-06-25] MEDS: INSULIN REGULAR, HUMAN 100 UNITS/1 ML SUB-Q SCH (08:17)
[2020-06-25] MEDS: FUROSEMIDE 40 MG/4 ML INJ IV SCH (09:17)
[2020-06-25] MEDS: TAMSULOSIN 0.4 MG CAP PO SCH (09:17)
[2020-06-25] MEDS: POTASSIUM CHLORIDE ER 10 MEQ TAB PO SCH (09:17)
[2020-06-25] MEDS: hydroCHLOROthiazide 12.5 MG CAP PO SCH (09:19)
[2020-06-25] MEDS: LOSARTAN 50 MG TAB PO SCH (09:20)
[2020-06-25] MEDS: carvediloL 12.5 MG TAB PO SCH (09:20)
[2020-06-25] MEDS: NIFEdipine XL 90 MG TAB PO SCH (09:21)
[2020-06-25 09:22] VITALS: BP 117/57
--- NOTE | 2020-06-25 10:08 | Event Note ---
Date: 06/25/20 The patient's coronavirus test was negative. As reported, he has critical aortic stenosis with a valve area of 0.5, and was previously scheduled for transaortic valve replacement at [facility] tomorrow. Due to his presentation with heart failure, I called his communications field technician who has agreed to accept him in transfer today to [facility] to further undergo management of his critical aortic stenosis. Recommend transfer to [facility] as inpatient.
--- NOTE | 2020-06-25 11:46 | Electrocardiograph Report ---
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
--- NOTE | 2020-06-25 13:56 | Discharge Summary ---
Providers - Providers Date of Admission: 06/22/20 09:18 Date of discharge: 06/25/20 Attending physician: KENISHA RAY MD 06/22/20 10:21 Consult to Physician [CONS] Routine Comment: Consulting Provider: WILIAM HARRIS Physician Instructions: Reason For Exam: heart failure Primary care physician: ELMER VELA MD Hospitalization Reason for admission: Severe aortic stenosis, pulmonary edema Condition: Fair Hospital course: History of present illness: 75-year-old male with past medical history of hyperlipidemia, BPH, diabetes mellitus type 2, hypertension and chronic kidney disease who presents to the emergency department with complaints of dyspnea that began yesterday evening. Patient stated that his symptoms persisted until arrival to the emergency room. Patient denies any history of COPD or heart failure but reports a "bad heart valve". Patient reports that he is scheduled for heart valve replacement on Monday with Dr. Tiago Ramos. Patient denies any chest pain, heart palpitations, abdominal pain, headache or visual disturbances. No cough or cold-like symptoms. No fever chills. Patient reports lower extremity swelling over the course of the past year but none recently. Patient denies PND or orthopnea. Hospital course Acute hypoxic respiratory failure. CTA of the chest revealed small bilateral pleural effusions with bilateral increased groundglass densities in a relative perihilar distribution suspicious for interstitial edema. Check COVID-19 PCR. Acute heart failure. Patient has a CTA that is suggestive of interstitial edema/pulmonary edema/CHF. BNP is also elevated at 6357. Check echocardiogram. Consult cardiology. Patient will be placed on heart failure pathway. Diabetes mellitus type 2. Accu-Cheks and sliding scale insulin. Resume Metformin. BPH. Resume medications. Hyperlipidemia. Resume antilipids. CKD. Creatinine appears to be stable at 1.3 06/23/2020 -Patient was off oxygen n -COVID-19 test -BMP from this morning is pending -Was evaluated by cardiology and had a recent echo which showed ejection fraction of 64% -Patient will have work-up with his taker off on Monday. -Patient can be discharged once we have his Covid test result 06/24/2020 -Covid test is still pending for the last 2 days -Patient was seen by cardiology and cardiology said we will transfer patient to [facility] to his taker off if Covid test is negative. Patient is not sure if he wants to be transferred or discharged home and go by himself. -Patient declined to take insulin, resumed his Glucophage and glipizide -His blood pressure medications -Held Plavix for scheduled procedure I have discussed with cardiology and cardiology recommends the patient be transferred to [facility] for work-up/surgery for his aortic stenosis. Patient has severe aortic stenosis and presented with pulmonary edema, congestive heart failure and he is high risk for complications if he is going home. I have explained the detail about the risks and benefits of being transferred to [facility] but he declined transfer and wants to go home and he said he will drive tomorrow and will see his taker off. I have discussed with Dr. Harris and he told me he called his taker off and arranged the transfer and he strongly recommend patient need to be transferred from hospital to hospital. Patient does not want it and sign AMA and went home. Disposition: DC-07 LEFT AGAINST MED ADVICE Final Discharge Diagnosis (Prints w/discharge instructions): Severe aortic stenosis. Pulmonary edema Time spent for discharge: 35 minutes - Discharge Diagnoses (1) Severe aortic stenosis Status: Acute (2) Dyspnea Status: Acute Core Measure Documentation - Palliative Care Palliative Care/ Comfort Measures: Not Applicable - Core Measures Any of the following diagnoses?: none Exam - Physical Exam Narrative exam: Not in cardiopulmonary distress. The patient appeared well nourished and normally developed. Vital signs as documented. Head exam is unremarkable. No scleral icterus . Neck is without jugular venous distension, thyromegaly, or carotid bruits. Lungs are clear to auscultation. Cardiac exam reveals regular rate and Rhythm. Abdominal exam reveals normal bowel sounds, nontender, no organomegaly. Extremities are nonedematous and both femoral and pedal pulses are normal. 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 No focal weakness. - Constitutional Vitals: Temp Pulse Resp BP Pulse Ox 97.9 F 61 16 117/57 96 06/25/20 04:09 06/25/20 04:09 06/25/20 04:09 06/25/20 09:20 06/25/20 04:09 Plan Activity: no restrictions Weight Bearing Status: Full Weight Bearing Diet: low salt Follow up with: ELMER VELA MD [Primary Care Provider] - 3-5 Days
== END 2020-06-25 10:30 | disposition left against medical advice (07) ==
LOC: ED 04:16 → INTOOBSV 09:18 → 3A 09:18
PROVIDERS: ADMIT Hospitalist; ATTEND Internal Medicine
DX: J96.01 Acute respiratory failure with hypoxia (principal); Z20.822 Contact with and (suspected) exposure to COVID-19; I13.0 Hypertensive heart and chronic kidney disease with heart failure and stage 1 through stage 4 chronic kidney disease, or unspecified chronic kidney disease; I50.9 Heart failure, unspecified; N18.9 Chronic kidney disease, unspecified; E11.22 Type 2 diabetes mellitus with diabetic chronic kidney disease; I35.0 Nonrheumatic aortic (valve) stenosis; N40.0 Benign prostatic hyperplasia without lower urinary tract symptoms; J81.1 Chronic pulmonary edema; E78.5 Hyperlipidemia, unspecified; Z79.4 Long term (current) use of insulin
CPT/HCPCS: 36415; 71045; 71275; 80048; 80053; 82140; 82962; 83880; 85025; 85610; 87040; 93005; 94644; 96365; 96375; 96376; 99291; A9270; G0378; J0692; J1940; Q9967; U0003; J1815